=== PATIENT | female | born 1990 | race African-American/Black ===

== ENCOUNTER 2019-01-20 18:57 | Inpatient (IN) | payer OTHER ==
--- NOTE | 2019-01-21 00:37 | HP ---
CIWA Score Nausea/Vomitin-No Nausea/No Vomiting Muscle Tremors: None Anxiety: 4-Mod. Anxious/Guarded Agitation: 4-Moderately Restless Paroxysmal Sweats: No Perspiration Orientation: 0-Oriented Tacttile Disturbances: 0-None Auditory Disturbances: 0-None Visual Disturbances: 0-None Headache: 0-None Present CIWA-Ar Total Score: 8 - Admission Criteria OASAS Guidelines: Admission for Medically Managed Detox: Requires at least one of the followin. CIWA greater than 12 2. Seizures within the past 24 hours 3. Delirium tremens within the past 24 hours 4. Hallucinations within the past 24 hours 5. Acute intervention needed for co occurring medical disorder 6. Acute intervention needed for co occurring psychiatric disorder 7. Severe withdrawal that cannot be handled at a lower level of care (continued vomiting, continued diarrhea, abnormal vital signs) requiring intravenous medication and/or fluids 8. Patient presents the following: Acute intervention needed for co-occurring med or psych disorder (schizoafective and manic depressive) Admission Criteria Met: Admission criteria met Admission ROS [facility] Chief Complaint: C/O WORSENING WITHDRAWAL SX'S. SEEKING DETOX TXMENT Allergies/Adverse Reactions: Allergies Allergy/AdvReac Type Severity Reaction Status Date / Time haloperidol [From Haldol] Allergy Verified 01/20/19 23:04 Penicillins Allergy Verified 01/20/19 23:04 risperidone [From Risperdal] Allergy Verified 01/20/19 23:04 History of Present Illness: 28 Y.O. FEMALE WITH HX/O ALCOHOLISM HERE FOR DETOX. CLIENT IS SELF REFERRED. PRESENTS TODAY WITH C/O WORSENING WITHDRAWAL SX'S. CIWA 12. CLIENT REPORTS THIS HER FIRST ATTEMPT AT DETOX. DENIES HX/O SEIZURES, AVH, SI/HI. DOES REPORT BLACK OUTS. REPORTS LONGEST CLEAN TIME 2 MONTHS. Exam Limitations: No Limitations - Ebola screening Have you traveled outside of the country in the last 21 days: No Have you had contact with anyone from an Ebola affected area: No Do you have a fever: No - Review of Systems Constitutional: Malaise, Unintentional Wgt. Loss EENT: reports: No Symptoms Reported Respiratory: reports: No Symptoms reported Cardiac: reports: No Symptoms Reported GI: reports: Abdominal cramping : reports: No Symptoms Reported Musculoskeletal: reports: Back Pain (CHRONIC) Integumentary: reports: Other (R GREAT TOE ABRASION) Neuro: reports: Numbness (R FOOT) Endocrine: reports: Other (HX/O DM) Hematology: reports: No Symptoms Reported Psychiatric: reports: Orientated x3, Agitated (IRRITABLE), Depressed Other Systems: Reviewed and Negative Patient History - Patient Medical History Hx Anemia: Yes Hx Asthma: Yes Hx Chronic Obstructive Pulmonary Disease (COPD): No Hx Cancer: No Hx Cardiac Disorders: Yes (HEART MUMUR AT ) Hx Congestive Heart Failure: No Hx Hypertension: No Hx Hypercholesterolemia: No Hx Pacemaker: No HX Cerebrovascular Accident: No Hx Seizures: No Hx Dementia: No Hx Diabetes: Yes (NON COMPLAINT W/ DM) Hx Gastrointestinal Disorders: Yes (CONSTIPATION) Hx Liver Disease: No Hx Genitourinary Disorders: No Hx Sexually Transmitted Disorders: No Hx Renal Disease (ESRD): No Hx Thyroid Disease: No Hx Human Immunodeficiency Virus (HIV): No Hx Hepatitis C: No Hx Depression: Yes Hx Suicide Attempt: No Hx Bipolar Disorder: No Hx Schizophrenia: Yes (SCHIZOAFFECTIVE) - Patient Surgical History Past Surgical History: Yes Hx Section: Yes (X2) Anesthesia Reaction: No - PPD History Previous Implant?: Yes Documented Results: Negative w/o proof Implanted On Prior [facility] Admission?: No PPD to be Administered?: Yes - Reproductive History Patient is a Female of Child Bearing Age (11 -55 yrs old): Yes LMP comment: 2 YEARS AGO; CONTROL IMPLANT IN LEFT ARM Patient : No (NEG UHCG) - Smoking Cessation Smoking history: Current every day smoker Have you smoked in the past 12 months: Yes Aproximately how many cigarettes per day: 20 Cigars Per Day: 0 Hx Chewing Tobacco Use: No Initiated information on smoking cessation: Yes 'Breaking Loose' booklet given: 01/21/19 - Substance & Tx. History Hx Alcohol Use: Yes Hx Substance Use: Yes Substance Use Type: Alcohol, Cocaine, Heroin Hx Substance Use Treatment: No - Substances abused Alcohol Substance route: Oral Frequency: Daily Amount used: 1 GALLON Age of first use: 14 Date of last use: 01/20/19 Cocaine Substance route: Smoking Frequency: Daily Amount used: 1 GRAM Age of first use: 26 Date of last use: 01/20/19 Marijuana/Hashish Substance route: Smoking Frequency: Daily Amount used: 2 BLUNTS Age of first use: 15 Date of last use: 01/20/19 Family Disease History - Family Disease History Family Disease History: CA: Mother (SCHIZPPHRENIC; FROM CERVICAL CA; ALCOHOLISM -), Other: Mother Admission Physical Exam [facility] - Vital Signs Vital Signs: Vital Signs - 24 hr 01/20/19 23:03 Temperature 98.7 F Pulse Rate 79 Respiratory 18 Rate Blood Pressure 114/69 - Physical General Appearance: Yes: Irritable HEENTM: Yes: EOMI, Normocephalic, Normal Voice, APOLLO, Pharynx Normal Respiratory: Yes: Chest Non-Tender, Lungs Clear, Normal Breath Sounds, No Respiratory Distress, No Accessory Muscle Use Neck: Yes: No masses,lesions,Nodules, Supple, Trachea in good position Breast: Yes: Breast Exam Deferred Cardiology: Yes: Regular Rhythm, Regular Rate, S1, S2 Abdominal: Yes: Non Tender, Soft, Increased Bowel Sounds Genitourinary: Yes: Within Normal Limits (NO C/O OFFERED) Back: Yes: Normal Inspection Musculoskeletal: Yes: full range of Motion, Gait Steady Extremities: Yes: Normal Capillary Refill, Normal Range of Motion, Non-Tender Neurological: Yes: Fully Oriented, Alert, Motor Strength 5/5, Depressed Affect Integumentary: Yes: Dry, Warm, Other (RIGHT GREAT TOE ABRASION) Lymphatic: Yes: Within Normal Limits - Diagnostic (1) Alcohol dependence with uncomplicated withdrawal Current Visit: Yes Status: Acute (2) Cocaine dependence, uncomplicated Current Visit: Yes Status: Acute (3) Nicotine dependence Current Visit: Yes Status: Acute Qualifiers: Nicotine product type: cigarettes Substance use status: uncomplicated Qualified Code(s): F17.210 - Nicotine dependence, cigarettes, uncomplicated (4) Cannabis abuse, uncomplicated Current Visit: Yes Status: Acute (5) Depression Current Visit: Yes Status: Chronic (6) Schizoaffective disorder Current Visit: Yes Status: Chronic (7) Diabetes Current Visit: Yes Status: Chronic (8) Noncompliance with medication regimen Current Visit: Yes Status: Chronic (9) HTN (hypertension) Current Visit: Yes Status: Chronic Cleared for Admission [facility] - Detox or Rehab [facility] Level of Care: Medically Managed Detox Regimen/Protocol: Librium Claeared for Rehab Admission: No Breathalyzer - Breathalyzer Breathalyzer: 0 POC Urine test - Test device test lot number: [id number] Expiration date: 06/20/20 - Control test control: Yes - Result Urine Test Results: Negative - NO line present Urine Drug Screen - Test Device Lot number: [id number] Expiration date: 09/19/20 - Control Is test valid?: Yes - Results Drug screen NEGATIVE: No Urine drug screen results: THC-Marijuana, FLAQUITO-Cocaine Inpatient Rehab Admission - Rehab Decision to Admit Inpatient rehab admission?: No
[2019-01-21] MEDS ORDERED: DICYCLOMINE HCL 10 MG CAPSULE PO PRN (01:08)
[2019-01-21] MEDS ORDERED: ONDANSETRON *ODT* 4 MG TABLET SL PRN (01:08)
[2019-01-21] MEDS ORDERED: MENTHOL/PHENOL 1 EACH UD MM PRN (01:08)
[2019-01-21] MEDS ORDERED: BISMUTH SUBSALICYLATE 524 MG/30 ML UD PO PRN (01:08)
[2019-01-21] MEDS ORDERED: ACETAMINOPHEN 325 MG TABLET (FP) PO PRN ×2 (01:08)
[2019-01-21] MEDS ORDERED: MAGNESIUM CITRATE 300 ML BOTTLE PO PRN (01:08)
[2019-01-21] MEDS ORDERED: P-EPHED 60MG/TRIPROLIDI 2.5MG TABLET PO PRN (01:08)
[2019-01-21] MEDS ORDERED: MAGNESIUM HYDROX 2400MG/30ML ORAL SUSPENSION 30 ML CUP PO PRN (01:08)
[2019-01-21] MEDS ORDERED: chlordiazePOXIDE HCL 25 MG CAPSULE PO ONE (01:08)
[2019-01-21] MEDS ORDERED: MAG HYDROX/AL HYDROX/SIMETH 30 ML UNIT-DOSE CUP PO PRN (01:08)
[2019-01-21] MEDS ORDERED: chlordiazePOXIDE HCL 10 MG CAPSULE PO PRN (01:08)
[2019-01-21] MEDS: METHOCARBAMOL 500 MG TABLET PO PRN ×2 (02:33→17:31)
[2019-01-21] MEDS: IBUPROFEN 400 MG TABLET (FP) PO PRN (02:33)
[2019-01-21] MEDS: chlordiazePOXIDE HCL 25 MG CAPSULE PO SCH ×3 (05:46→21:21)
[2019-01-21] MEDS ORDERED: NICOTINE POLACRILEX 2 MG GUM BUC PRN (07:51)
--- NOTE | 2019-01-21 10:09 | EKG ---
Test Reason : Blood Pressure : / mmHG Vent. Rate : 067 BPM Atrial Rate : 067 BPM P-R Int : 176 ms QRS Dur : 084 ms QT Int : 392 ms P-R-T Axes : 013 060 040 degrees QTc Int : 414 ms NORMAL SINUS RHYTHM WITH SINUS ARRHYTHMIA NORMAL ECG NO PREVIOUS ECGS AVAILABLE Confirmed by MIQUEL LONGORIA MD ([id number]) on 01/21/2019 10:08:47 AM Referred By: CLARE Confirmed By:MIQUEL LONGORIA MD
[2019-01-21] MEDS: NICOTINE 21 MG/24 HOURS TOPICAL PATCH TD SCH (10:36)
[2019-01-21] MEDS: PRENATAL VITAMINS W/ FOLIC ACID TABLET (FP) PO SCH (10:36)
[2019-01-21 12:32] LABS: HEMATOCRIT 35.5 % (32.4-45.2); HEMOGLOBIN 11.8 GM/dL (10.7-15.3); MCH 30.7 pg (25.7-33.7); MCHC 33.3 g/dl (32.0-36.0); MEAN CELL VOLUME 92.1 fl (80-96); MEAN PLT VOLUME 7.2 fl (7.5-11.1); PLATELET COUNT 352 K/MM3 (134-434); RBC 3.85 M/mm3 (3.60-5.2); RDW 13.7 % (11.6-15.6); WHITE BLOOD COUNT 7.5 K/mm3 (4.0-10.0)
[2019-01-21] MEDS: ALBUTEROL SO4 8 GM HFA INHALER IH PRN ×2 (12:43→20:41)
[2019-01-21] MEDS ORDERED: ALBUTEROL SO4 8 GM HFA INHALER IH ONE (12:43)
[2019-01-21 12:55] LABS: ALBUMIN 3.2 g/dl (3.4-5.0); ALK PHOS 109 U/L (45-117); ANION GAP 7 MMOL/L (8-16); BILIRUBIN,TOTAL 0.2 mg/dL (0.2-1); BLOOD UREA NITROGEN 11 mg/dL (7-18); CALCIUM 8.4 mg/dL (8.5-10.1); CHLORIDE 107 mmol/L (98-107); CO2 25 mmol/L (21-32); CREATININE 0.7 mg/dL (0.55-1.3); GLUCOSE,RANDOM 90 mg/dL (74-106); SGOT/AST 9 U/L (15-37); SGPT/ALT 16 U/L (13-61); SODIUM 139 mmol/L (136-145)
--- NOTE | 2019-01-21 13:05 | PN ---
S CIWA - CIWA Score Nausea/Vomitin-Mild Nausea/No Vomiting Muscle Tremors: 1-None Visible, but Bath Anxiety: 1-Mildly Anxious Agitation: 1-Slight > Activity Paroxysmal Sweats: No Perspiration Orientation: 0-Oriented Tacttile Disturbances: 0-None Auditory Disturbances: 0-None Visual Disturbances: 0-None Headache: 0-None Present CIWA-Ar Total Score: 4 BHS Progress Note (SOAP) Subjective: pt c/o pain R big toe, says it was red yesterday, feeling better today. PE R toe- no redness noted, no warmth, compared to left- no swelling. Vital Signs - 24 hr 01/20/19 01/21/19 01/21/19 23:03 01:50 06:19 Temperature 98.7 F 98.1 F 98.5 F Pulse Rate 79 74 71 Respiratory 18 18 18 Rate Blood Pressure 114/69 118/73 108/67 01/21/19 01/21/19 06:30 11:06 Temperature 98.6 F Pulse Rate 74 Respiratory 18 18 Rate Blood Pressure 120/77 Laboratory Tests 01/21/19 01/21/19 07:00 07:00 WBC 7.5 RBC 3.85 Hgb 11.8 Hct 35.5 MCV 92.1 MCH 30.7 MCHC 33.3 RDW 13.7 Plt Count 352 MPV 7.2 L Sodium 139 Potassium 4.0 Chloride 107 Carbon Dioxide 25 Anion Gap 7 L BUN 11 Creatinine 0.7 Creat Clearance w eGFR 101.15 Random Glucose 90 Calcium 8.4 L Total Bilirubin 0.2 AST 9 L ALT 16 Alkaline Phosphatase 109 Total Protein 6.0 L Albumin 3.2 L a/p: continue alcohol detox protocol: pt doing well R toe- d/w that it looks fine now- to inform medical staff if pain, redness, swelling increased
--- NOTE | 2019-01-21 15:21 | CONSULT ---
[facility] Psychiatric Consult - Data Date of interview: 01/21/19 Admission source: [facility] Identifying data: First admission to [facility] for this 28 y/o AA female self- referred for detoxification treatment (cocaine, cannabis, alcohol). Examined at [address] [place] [address]. Patient is , a mother of two,homeless, unemployed and currently deprived of income (welfare benefits are discontinued). Substance Abuse History: Confirmed by the patient during this interview. Details in current [facility] report : Smoking history: Current every day smoker. Have you smoked in the past 12 months: Yes. Aproximately how many cigarettes per day: 20. Cigars Per Day: 0. Hx Chewing Tobacco Use: No. Initiated information on smoking cessation: Yes. 'Breaking Loose' booklet given: . - Substance & Tx. History. Hx Alcohol Use: Yes. Hx Substance Use: Yes. Substance Use Type: Alcohol, Cocaine, Heroin. Hx Substance Use Treatment: No. - Substances abused. Alcohol. Substance route: Oral. Frequency: Daily. Amount used: 1 GALLON. Age of first use: 14. Date of last use: 01/20/19. Cocaine. Substance route: Smoking. Frequency: Daily. Amount used: 1 GRAM. Age of first use: 26. Date of last use: 01/20/19. Marijuana/Hashish. Substance route: Smoking. Frequency: Daily. Amount used: 2 BLUNTS. Age of first use: 15. Date of last use: 01/20/19 Medical History: Remarkable for anemia, history of heart murmur, bronchial asthma, diabetes mellitus and a history of two sections. Psychiatric History: Patient admits to a history of multiple psychiatric hospitalizations ([facility] + [facility]). Onset of psychiatric disturbances : age 20 (psychotic episode following childbirth). Initially diagnosed with psychosis. Later revised to Schizoaffective Disorder. Ms Marin states that she ised to be prescribed a regimen of abilify (up to 30 mg/day) and hydroxyzine. NOT taken for TWO years ( patient's report). She is currently seeing a " therapist " at the [facility] in [place], [place]. Patient endorses a distant history of self- mutilation at age 18 (cutting). Physical/Sexual Abuse/Trauma History: Not discussed. Patient declines. Additional Comment: Urine drug screen results: THC-Marijuana, FLAQUITO-Cocaine. Noted. Mental Status Exam - Mental Status Exam Alert and Oriented to: Time, Place, Person Cognitive Function: Good Patient Appearance: Disheveled Mood: Nervous, Withdrawn Affect: Mood Congruent, Constricted Patient Behavior: Fatigued, Appropriate, Cooperative Speech Pattern: Clear, Appropriate Voice Loudness: Normal Thought Process: Goal Oriented Thought Disorder: Not Present Hallucinations: Denies Suicidal Ideation: Denies Homicidal Ideation: Denies Insight/Judgement: Poor Sleep: Fair Appetite: Good Gait/Station: Other (not observed; interview conducted at bedside; did not get out of bed) Psychiatric Findings - Problem List ([place] 1, 2,3) (1) Alcohol dependence with uncomplicated withdrawal Current Visit: Yes Status: Acute (2) Cannabis abuse, uncomplicated Current Visit: Yes Status: Chronic (3) Cocaine dependence, uncomplicated Current Visit: Yes Status: Chronic (4) Nicotine dependence Current Visit: Yes Status: Chronic Qualifiers: Nicotine product type: cigarettes Substance use status: uncomplicated Qualified Code(s): F17.210 - Nicotine dependence, cigarettes, uncomplicated (5) Substance induced mood disorder Current Visit: Yes Status: Chronic (6) Schizoaffective disorder Current Visit: Yes Status: Chronic Comment: By history. Non-adherence to medications for past two years. (7) Noncompliance with medication regimen Current Visit: Yes Status: Chronic - Initial Treatment Plan Initial Treatment Plan: Psychoeducation. Sleep hygiene. Detoxification. Support. Motivational enhancement of lifestyle changes. Relapse prevention : discussed with patient. AA meetings. Groups. Patient is asymptomatic for psychosis or claudia and she wishes to stay off aripriprazole (or any other mood stabilizers). Made aware of risks inherent to abstention from medications. Observation.
[2019-01-21] MEDS: guaiFENesin 200 MG/10 ML 10 ML UNIT-DOSE CUPS PO PRN (17:29)
[2019-01-21] MEDS: hydrOXYzine PAMOATE 25 MG CAPSULE (FP) PO PRN (18:54)
[2019-01-21] MEDS: THIAMINE HCL 100 MG TABLET (FP) PO SCH (22:21)
[2019-01-21] MEDS: MELATONIN 5 MG TABLETS PO PRN (22:21)
[2019-01-21 23:35] LABS: PH,URINE 7.5 (5.0-8.0); URINE APPEARANCE CLOUDY; URINE BILIRUBIN NEGATIVE (NEGATIVE); URINE COLOR YELLOW; URINE GLUCOSE (UA) NEGATIVE (NEGATIVE); URINE KETONE NEGATIVE (NEGATIVE); URINE LEUK ESTERASE NEGATIVE (NEGATIVE); URINE NITRITE NEGATIVE (NEGATIVE); URINE PROTEIN NEGATIVE (NEGATIVE); URINE UROBILINOGEN 0.2 mg/dL (0.2-1.0)
[2019-01-22] MEDS: chlordiazePOXIDE 5 MG CAPSULE PO SCH ×3 (05:50→21:30)
[2019-01-22] MEDS: PRENATAL VITAMINS W/ FOLIC ACID TABLET (FP) PO SCH (10:08)
[2019-01-22] MEDS: NICOTINE 21 MG/24 HOURS TOPICAL PATCH TD SCH (10:08)
[2019-01-22] MEDS: LIDOCAINE 5% TOPICAL PATCH TP SCH (13:57)
[2019-01-22] MEDS: guaiFENesin 200 MG/10 ML 10 ML UNIT-DOSE CUPS PO PRN (14:02)
[2019-01-22] MEDS: METHOCARBAMOL 500 MG TABLET PO PRN (17:26)
[2019-01-22] MEDS: hydrOXYzine PAMOATE 25 MG CAPSULE (FP) PO PRN (17:26)
--- NOTE | 2019-01-22 17:34 | PN ---
S CIWA - CIWA Score Nausea/Vomitin Muscle Tremors: None Anxiety: 4-Mod. Anxious/Guarded Agitation: 1-Slight > Activity Paroxysmal Sweats: No Perspiration Orientation: 0-Oriented Tacttile Disturbances: 0-None Auditory Disturbances: 0-None Visual Disturbances: 0-None Headache: 0-None Present CIWA-Ar Total Score: 10 BHS Progress Note (SOAP) Subjective: Anxious, Body Aches, Vomiting, Anxious. Objective: PATIENT A & O X 3, OBSERVED AMBULATING ON UNIT. IN NO ACUTE DISTRESS. 01/22/19 17:33 Vital Signs Temperature 98.5 F 01/22/19 14:17 Pulse Rate 64 01/22/19 14:17 Respiratory Rate 18 01/22/19 14:17 Blood Pressure 118/70 01/22/19 14:17 O2 Sat by Pulse Oximetry (%) Laboratory Tests 01/21/19 01/21/19 01/21/19 07:00 07:00 07:00 WBC 7.5 RBC 3.85 Hgb 11.8 Hct 35.5 MCV 92.1 MCH 30.7 MCHC 33.3 RDW 13.7 Plt Count 352 MPV 7.2 L Sodium 139 Potassium 4.0 Chloride 107 Carbon Dioxide 25 Anion Gap 7 L BUN 11 Creatinine 0.7 Creat Clearance w eGFR 101.15 Random Glucose 90 Calcium 8.4 L Total Bilirubin 0.2 AST 9 L ALT 16 Alkaline Phosphatase 109 Total Protein 6.0 L Albumin 3.2 L Urine Color Urine Appearance Urine pH Ur Specific [place] Urine Protein Urine Glucose (UA) Urine Ketones Urine Blood Urine Nitrite Urine Bilirubin Urine Urobilinogen Ur Leukocyte Esterase Urine WBC (Auto) Urine RBC (Auto) Urine Casts (Auto) U Pathogenic Cast Auto U Epithel Cells (Auto) U Sm Round Cell (Auto) Urine Crystals (Auto) Urine Bacteria (Auto) Urine Yeast (Auto) RPR Titer Nonreactive 01/21/19 01/21/19 12:30 23:25 WBC RBC Hgb Hct MCV MCH MCHC RDW Plt Count MPV Sodium Potassium Chloride Carbon Dioxide Anion Gap BUN Creatinine Creat Clearance w eGFR Random Glucose Calcium Total Bilirubin AST ALT Alkaline Phosphatase Total Protein Albumin Urine Color Cancelled Yellow Urine Appearance Cancelled Cloudy Urine pH Cancelled 7.5 Ur Specific [place] Cancelled 1.015 Urine Protein Cancelled Negative Urine Glucose (UA) Cancelled Negative Urine Ketones Cancelled Negative Urine Blood Cancelled Negative Urine Nitrite Cancelled Negative Urine Bilirubin Cancelled Negative Urine Urobilinogen Cancelled 0.2 Ur Leukocyte Esterase Cancelled Negative Urine WBC (Auto) Cancelled Urine RBC (Auto) Cancelled Urine Casts (Auto) Cancelled U Pathogenic Cast Auto Cancelled U Epithel Cells (Auto) Cancelled U Sm Round Cell (Auto) Cancelled Urine Crystals (Auto) Cancelled Urine Bacteria (Auto) Cancelled Urine Yeast (Auto) Cancelled RPR Titer LABS NOTED. Assessment: 01/22/19 17:33 WITHDRAWAL SYMPTOMS. Plan: CONTINUE DETOX. PRBN ZOFRAN SL FOR VOMITING.
[2019-01-22] MEDS ORDERED: diphenhydrAMINE HCL 25 MG CAPSULE (FP) PO ONE (19:00)
[2019-01-22] MEDS: THIAMINE HCL 100 MG TABLET (FP) PO SCH (21:29)
[2019-01-22] MEDS: IBUPROFEN 400 MG TABLET (FP) PO PRN (21:29)
[2019-01-22] MEDS: MELATONIN 5 MG TABLETS PO PRN (21:31)
[2019-01-22] MEDS: ALBUTEROL SO4 8 GM HFA INHALER IH PRN (22:36)
[2019-01-22] MEDS: LIDOCAINE PATCH REMOVAL MC SCH (22:44)
[2019-01-23] MEDS ORDERED: chlordiazePOXIDE HCL 10 MG CAPSULE PO PRN (05:00)
[2019-01-23] MEDS: chlordiazePOXIDE HCL 10 MG CAPSULE PO SCH ×3 (05:57→21:58)
[2019-01-23] MEDS: IBUPROFEN 400 MG TABLET (FP) PO PRN ×2 (06:02→22:02)
[2019-01-23] MEDS: hydrOXYzine PAMOATE 25 MG CAPSULE (FP) PO PRN ×2 (06:33→18:15)
[2019-01-23] MEDS ORDERED: COLLOIDAL OATMEAL 1 BAR EACH TP PRN (08:38)
[2019-01-23] MEDS ORDERED: diphenhydrAMINE HCL 25 MG CAPSULE (FP) PO PRN (08:38)
[2019-01-23] MEDS: PRENATAL VITAMINS W/ FOLIC ACID TABLET (FP) PO SCH (10:17)
[2019-01-23] MEDS: NICOTINE 21 MG/24 HOURS TOPICAL PATCH TD SCH (10:18)
[2019-01-23] MEDS: LIDOCAINE 5% TOPICAL PATCH TP SCH (10:19)
--- NOTE | 2019-01-23 11:34 | PN ---
Psychiatric Progress Note Vital Signs: Vital Signs Period Temp Pulse Resp BP Sys/Solomon Pulse Ox Last 24 Hr 97.0 F-99.3 F 64-82 16-18 109-131/59-78 Date of Session: 01/23/19 Chief Complaint:: " I want to get back on abilify ". HPI: Asked to re-consult on this patient who has expressed the wish to resume aripriprazole (not taken for past two years). Reason : she feels that she is " getting more irritable ". Ms Marin reports that she almost got into a confrontation yesterday with another peer. " I need abilify to calm me down ". ROS: UUnremarkable. Current Medications: Active Medications Generic Name Dose Route Start Last Admin Trade Name Freq PRN Reason Stop Dose Admin Acetaminophen 650 mg 01/21/19 01:08 01/22/19 05:51 Tylenol - PO 650 mg Q6H PRN Administration PAIN LEVEL 4 - 6 Acetaminophen 650 mg 01/21/19 01:08 Tylenol - PO Q6H PRN FEVER Al Hydroxide/Mg Hydroxide 30 ml 01/21/19 01:08 Mylanta Oral Suspension - PO Q6H PRN DYSPEPSIA Albuterol Sulfate 2 puff 01/21/19 14:31 01/22/19 22:36 Ventolin Hfa Inhaler - IH 2 puff Q4H PRN Administration ASTHMA Bismuth Subsalicylate 524 mg 01/21/19 01:08 Pepto-Bismol - PO Q1H PRN DIARRHEA Chlordiazepoxide HCl 10 mg 01/23/19 05:00 Librium - PO 01/24/19 05:00 Q12H PRN Signs/symptoms of Withdrawal Chlordiazepoxide HCl 10 mg 01/23/19 05:00 01/23/19 05:57 Librium - PO 01/24/19 05:01 10 mg Q8H WALT Administration Colloidal Oatmeal 1 applic 01/23/19 08:38 Aveeno Soap - TP DAILY PRN HYGEINE Dicyclomine HCl 10 mg 01/21/19 01:08 Bentyl - PO 01/27/19 01:13 Q6H PRN Abdominal Cramping Eucalyptus/Menthol/Phenol/Sorbitol 1 each 01/21/19 01:08 Cepastat Lozenge - MM 01/27/19 01:09 Q4H PRN SORE THROAT Guaifenesin 10 ml 01/21/19 01:08 01/22/19 14:02 Robitussin - PO 10 ml Q6H PRN Administration COUGH Hydrocortisone 1 applic 01/23/19 10:00 Hytone 0.5% Cream - TP BID WALT Hydroxyzine Pamoate 50 mg 01/21/19 01:08 01/23/19 06:33 Vistaril - PO 01/27/19 01:09 50 mg Q6H PRN Administration For Anxiety Ibuprofen 400 mg 01/21/19 01:08 01/23/19 06:02 Motrin - PO 400 mg Q6H PRN Administration PAIN LEVEL 1 - 3 Lidocaine 1 patch 01/22/19 13:45 01/23/19 10:19 Lidoderm Patch - TP 1 patch DAILY WALT Administration Magnesium Citrate 300 ml 01/21/19 01:08 Citroma - PO Q48H PRN CONSTIPATION Magnesium Hydroxide 30 ml 01/21/19 01:08 Milk Of Magnesia - PO PRN PRN CONSTIPATION Melatonin 5 mg 01/21/19 01:08 01/22/19 21:31 Melatonin PO 5 mg HS PRN Administration INSOMNIA Methocarbamol 500 mg 01/21/19 01:08 01/22/19 17:26 Robaxin - PO 01/27/19 01:09 500 mg Q6H PRN Administration MUSCLE SPASMS Miscellaneous 1 each 01/22/19 22:00 01/22/19 22:44 Lidoderm Patch Removal MC Not Given DAILY@2200 WALT Nicotine 21 mg 01/21/19 10:00 01/23/19 10:18 Nicoderm Patch - TD 21 mg DAILY WALT Administration Nicotine Polacrilex 2 mg 01/21/19 07:51 01/21/19 08:03 Nicorette Gum - BUC 2 mg Q2H PRN Administration NICOTINE REPLACEMENT RX Ondansetron HCl 4 mg 01/21/19 01:08 01/22/19 12:20 Zofran Odt - SL 01/27/19 01:13 4 mg Q12H PRN Administration Nausea/Vomiting Multivit/Folic Acid/Iron 1 tab 01/21/19 10:00 01/23/19 10:17 Vitamins ([facility]) - PO 1 tab DAILY WALT Administration Pseudoephedrine/Triprolidine 1 combo 01/21/19 01:08 Actifed - PO 01/27/19 01:13 Q6H PRN NASAL CONGESTION Thiamine HCl 100 mg 01/21/19 22:00 01/22/19 21:29 Vitamin B1 - PO 100 mg HS WALT Administration Medication(s) Change(s): Abilify is restarted at the dose of 5 mg po daily. Side effects/benefits discussed with the patient. Ms Marin is in agreement with this plan of care. Current Side Effect: No Lab tests ordered: No Lab tests reviewed: Yes Provider note:: Met with patient. Chart reviewed. Total face to face time:: 25 Mental Status Exam - Mental Status Exam Alert and Oriented to: Time, Place, Person Cognitive Function: Good Patient Appearance: Well Groomed Mood: Apprehensive, Hopeful Affect: Mood Congruent, Constricted Patient Behavior: Fatigued, Appropriate, Cooperative Speech Pattern: Clear, Appropriate Voice Loudness: Normal Thought Process: Goal Oriented Thought Disorder: Not Present Hallucinations: Denies Suicidal Ideation: Denies Homicidal Ideation: Denies Insight/Judgement: Fair Sleep: Fair Appetite: Good Muscle strength/Tone: Normal Gait/Station: Normal Psychiatric Treatment Plan - Problem List (1) Alcohol dependence with uncomplicated withdrawal Current Visit: Yes Comment: . (2) Cannabis abuse, uncomplicated Current Visit: Yes Comment: . (3) Cocaine dependence, uncomplicated Current Visit: Yes Comment: . (4) Nicotine dependence Current Visit: Yes Qualifiers: Nicotine product type: cigarettes Substance use status: uncomplicated Qualified Code(s): F17.210 - Nicotine dependence, cigarettes, uncomplicated Comment: . (5) Substance induced mood disorder Current Visit: Yes Comment: . (6) Schizoaffective disorder Current Visit: Yes Comment: .By history. Non-adherence to medications for past two years. (7) Noncompliance with medication regimen Current Visit: Yes Comment: .
[2019-01-23] MEDS: HYDROCORTISONE 0.5% TOPICAL CREAM 30 GM TUBE TP SCH ×2 (13:09→21:58)
[2019-01-23] MEDS: METHOCARBAMOL 500 MG TABLET PO PRN ×2 (13:11→18:15)
--- NOTE | 2019-01-23 17:12 | PN ---
BHS Progress Note (SOAP) Subjective: Body Aches, Anxious. Objective: PATIENT A & O X 3, OBSERVED AMBULATING ON UNIT. IN NO ACUTE DISTRESS. 01/23/19 17:11 Vital Signs Temperature 97.2 F L 01/23/19 14:32 Pulse Rate 72 01/23/19 14:32 Respiratory Rate 18 01/23/19 14:32 Blood Pressure 88/64 L 01/23/19 14:32 O2 Sat by Pulse Oximetry (%) Laboratory Tests 01/21/19 01/21/19 01/21/19 07:00 07:00 07:00 WBC 7.5 RBC 3.85 Hgb 11.8 Hct 35.5 MCV 92.1 MCH 30.7 MCHC 33.3 RDW 13.7 Plt Count 352 MPV 7.2 L Sodium 139 Potassium 4.0 Chloride 107 Carbon Dioxide 25 Anion Gap 7 L BUN 11 Creatinine 0.7 Creat Clearance w eGFR 101.15 Random Glucose 90 Calcium 8.4 L Total Bilirubin 0.2 AST 9 L ALT 16 Alkaline Phosphatase 109 Total Protein 6.0 L Albumin 3.2 L Urine Color Urine Appearance Urine pH Ur Specific [place] Urine Protein Urine Glucose (UA) Urine Ketones Urine Blood Urine Nitrite Urine Bilirubin Urine Urobilinogen Ur Leukocyte Esterase Urine WBC (Auto) Urine RBC (Auto) Urine Casts (Auto) U Pathogenic Cast Auto U Epithel Cells (Auto) U Sm Round Cell (Auto) Urine Crystals (Auto) Urine Bacteria (Auto) Urine Yeast (Auto) RPR Titer Nonreactive 01/21/19 01/21/19 12:30 23:25 WBC RBC Hgb Hct MCV MCH MCHC RDW Plt Count MPV Sodium Potassium Chloride Carbon Dioxide Anion Gap BUN Creatinine Creat Clearance w eGFR Random Glucose Calcium Total Bilirubin AST ALT Alkaline Phosphatase Total Protein Albumin Urine Color Cancelled Yellow Urine Appearance Cancelled Cloudy Urine pH Cancelled 7.5 Ur Specific [place] Cancelled 1.015 Urine Protein Cancelled Negative Urine Glucose (UA) Cancelled Negative Urine Ketones Cancelled Negative Urine Blood Cancelled Negative Urine Nitrite Cancelled Negative Urine Bilirubin Cancelled Negative Urine Urobilinogen Cancelled 0.2 Ur Leukocyte Esterase Cancelled Negative Urine WBC (Auto) Cancelled Urine RBC (Auto) Cancelled Urine Casts (Auto) Cancelled U Pathogenic Cast Auto Cancelled U Epithel Cells (Auto) Cancelled U Sm Round Cell (Auto) Cancelled Urine Crystals (Auto) Cancelled Urine Bacteria (Auto) Cancelled Urine Yeast (Auto) Cancelled RPR Titer LABS NOTED. Assessment: 01/23/19 17:11 WITHDRAWAL SYMPTOMS. Plan: CONTINUE DETOX. PATIENT SCHEDULED FOR D/C TOMORROW.
[2019-01-23] MEDS: guaiFENesin 200 MG/10 ML 10 ML UNIT-DOSE CUPS PO PRN (18:14)
[2019-01-23] MEDS: THIAMINE HCL 100 MG TABLET (FP) PO SCH (21:58)
[2019-01-23] MEDS: LIDOCAINE PATCH REMOVAL MC SCH (21:58)
[2019-01-23] MEDS: MELATONIN 5 MG TABLETS PO PRN (21:59)
[2019-01-23] MEDS ORDERED: ARIPiprazole 5 MG TABLET (FP) PO SCH (22:00)
[2019-01-24] MEDS: METHOCARBAMOL 500 MG TABLET PO PRN (05:26)
[2019-01-24] MEDS: chlordiazePOXIDE HCL 10 MG CAPSULE PO SCH (05:26)
[2019-01-24 06:38] VITALS: BP 120/82; PULSE 80; TEMP 97.6
[2019-01-24] MEDS: hydrOXYzine PAMOATE 25 MG CAPSULE (FP) PO PRN (07:42)
--- NOTE | 2019-01-24 19:52 | DS ---
[facility] Detox Discharge Summary Admission Date: 01/21/19 Discharge Date: 01/24/19 - History Present History: Alcohol Dependence, Cannabis Dependence, Cocaine Dependence Additional Comments: PATIENT GOING TO [facility] ([place], [place]) FOR AFTERCARE. PATIENT WAS DISCHARGED FROM DETOX UNIT IN STABLE MEDICAL CONDITION. Pertinent Past History: History Of Anemia, Asthma, History of Heart Murmur, DM, Dpression, Schizoaffective Disorder, Nicotine Dependence. - Physical Exam Results Vital Signs: Vital Signs Temperature 97.6 F 01/24/19 06:37 Pulse Rate 80 01/24/19 06:37 Respiratory Rate 18 01/24/19 06:37 Blood Pressure 120/82 01/24/19 06:37 O2 Sat by Pulse Oximetry (%) Pertinent Admission Physical Exam Findings: WITHDRAWAL SYMPTOMS. Laboratory Tests 01/21/19 01/21/19 01/21/19 07:00 07:00 07:00 WBC 7.5 RBC 3.85 Hgb 11.8 Hct 35.5 MCV 92.1 MCH 30.7 MCHC 33.3 RDW 13.7 Plt Count 352 MPV 7.2 L Sodium 139 Potassium 4.0 Chloride 107 Carbon Dioxide 25 Anion Gap 7 L BUN 11 Creatinine 0.7 Creat Clearance w eGFR 101.15 Random Glucose 90 Calcium 8.4 L Total Bilirubin 0.2 AST 9 L ALT 16 Alkaline Phosphatase 109 Total Protein 6.0 L Albumin 3.2 L Urine Color Urine Appearance Urine pH Ur Specific [place] Urine Protein Urine Glucose (UA) Urine Ketones Urine Blood Urine Nitrite Urine Bilirubin Urine Urobilinogen Ur Leukocyte Esterase Urine WBC (Auto) Urine RBC (Auto) Urine Casts (Auto) U Pathogenic Cast Auto U Epithel Cells (Auto) U Sm Round Cell (Auto) Urine Crystals (Auto) Urine Bacteria (Auto) Urine Yeast (Auto) RPR Titer Nonreactive 01/21/19 01/21/19 12:30 23:25 WBC RBC Hgb Hct MCV MCH MCHC RDW Plt Count MPV Sodium Potassium Chloride Carbon Dioxide Anion Gap BUN Creatinine Creat Clearance w eGFR Random Glucose Calcium Total Bilirubin AST ALT Alkaline Phosphatase Total Protein Albumin Urine Color Cancelled Yellow Urine Appearance Cancelled Cloudy Urine pH Cancelled 7.5 Ur Specific [place] Cancelled 1.015 Urine Protein Cancelled Negative Urine Glucose (UA) Cancelled Negative Urine Ketones Cancelled Negative Urine Blood Cancelled Negative Urine Nitrite Cancelled Negative Urine Bilirubin Cancelled Negative Urine Urobilinogen Cancelled 0.2 Ur Leukocyte Esterase Cancelled Negative Urine WBC (Auto) Cancelled Urine RBC (Auto) Cancelled Urine Casts (Auto) Cancelled U Pathogenic Cast Auto Cancelled U Epithel Cells (Auto) Cancelled U Sm Round Cell (Auto) Cancelled Urine Crystals (Auto) Cancelled Urine Bacteria (Auto) Cancelled Urine Yeast (Auto) Cancelled RPR Titer LABS NOTED. - Treatment Hospital Course: Detox Protocol Followed, Detoxed Safely, Responded well, Discharged Condition Good, Rehab Referral Accepted Patient has Accepted a Rehab Referral to: [facility] ([place], [place]). - Medication Discharge Medications: Ambulatory Orders Albuterol Sulfate Inhaler - [Ventolin Hfa Inhaler -] 1 - 2 inh PO Q4H PRN #1 inhaler 01/24/19 - Diagnosis (1) Alcohol dependence with uncomplicated withdrawal Status: Acute (2) Cannabis abuse, uncomplicated Status: Chronic (3) Cocaine dependence, uncomplicated Status: Chronic (4) Depression Status: Chronic Qualifiers: Depression Type: unspecified Qualified Code(s): F32.9 - Major depressive disorder, single episode, unspecified (5) Diabetes Status: Chronic Qualifiers: Diabetes mellitus type: type 2 Diabetes mellitus group home insulin use: without group home use Diabetes mellitus complication status: with unspecified complications Qualified Code(s): E11.8 - Type 2 diabetes mellitus with unspecified complications (6) HTN (hypertension) Status: Chronic Qualifiers: Hypertension type: unspecified Qualified Code(s): I10 - Essential (primary ) hypertension (7) Nicotine dependence Status: Chronic Qualifiers: Nicotine product type: cigarettes Substance use status: uncomplicated Qualified Code(s): F17.210 - Nicotine dependence, cigarettes, uncomplicated (8) Noncompliance with medication regimen Status: Chronic (9) Schizoaffective disorder Status: Chronic Qualifiers: Schizoaffective disorder type: unspecified Qualified Code(s): F25.9 - Schizoaffective disorder, unspecified (10) Substance induced mood disorder Status: Chronic - AMA Did Patient Leave Against Medical Advice: No
== END 2019-01-24 09:35 | disposition other institution (70) | DRG 774 ==
LOC: YASAS 18:57 → Y3N 01-21 01:02
PROVIDERS: ADMIT Surgery; ATTEND Surgery
PROC: HZ2ZZZZ Detoxification Services for Substance Abuse Treatment (ICD-10-PCS; principal; 2019-01-21)
DX: F10.230 Alcohol dependence with withdrawal, uncomplicated (principal); F14.20 Cocaine dependence, uncomplicated; F12.20 Cannabis dependence, uncomplicated; F17.210 Nicotine dependence, cigarettes, uncomplicated; F19.24 Other psychoactive substance dependence with psychoactive substance-induced mood disorder; F25.9 Schizoaffective disorder, unspecified; F32.9 Major depressive disorder, single episode, unspecified; I10 Essential (primary) hypertension; E11.9 Type 2 diabetes mellitus without complications; Z79.84 Long term (current) use of oral hypoglycemic drugs; Z91.14 Patient's other noncompliance with medication regimen; Z88.0 Allergy status to penicillin; Z88.8 Allergy status to other drugs, medicaments and biological substances
CPT/HCPCS: 36415; 80053; 81003; 85027; 86593; 90686; 93005; 93010; G0008; Q0162

== ENCOUNTER 2021-02-03 15:51 | Inpatient (IN) | payer OTHER ==
[2021-02-03 19:59] VITALS: BMI 32.3
[2021-02-04] MEDS ORDERED: MAGNESIUM CITRATE 300 ML BOTTLE PO PRN (00:21)
[2021-02-04] MEDS ORDERED: MAGNESIUM HYDROX 2400MG/30ML ORAL SUSPENSION 30 ML CUP PO PRN (00:21)
[2021-02-04] MEDS ORDERED: MAG HYDROX/AL HYDROX/SIMETH 30 ML UNIT-DOSE CUP PO PRN (00:21)
[2021-02-04] MEDS ORDERED: P-EPHED 60MG/TRIPROLIDI 2.5MG TABLET PO PRN (00:21)
[2021-02-04] MEDS ORDERED: guaiFENesin 200 MG/10 ML 10 ML UNIT-DOSE CUPS PO PRN (00:21)
[2021-02-04] MEDS ORDERED: LOPERAMIDE HCL 2 MG CAPSULE PO PRN (00:21)
[2021-02-04] MEDS: NICOTINE 21 MG/24 HOURS TOPICAL PATCH TD SCH (11:17)
[2021-02-04] MEDS: PRENATAL VITAMINS W/ FOLIC ACID TABLET (FP) PO SCH (11:17)
[2021-02-04] MEDS: IBUPROFEN 400 MG TABLET (FP) PO PRN ×2 (13:04→19:18)
[2021-02-04] MEDS: ACETAMINOPHEN 325 MG TABLET (FP) PO PRN (15:37)
[2021-02-04] MEDS: THIAMINE HCL 100 MG TABLET (FP) PO SCH (21:53)
[2021-02-04] MEDS: MELATONIN 5 MG TABLETS PO SCH (21:53)
[2021-02-05] MEDS: IBUPROFEN 400 MG TABLET (FP) PO PRN ×2 (08:07→14:39)
[2021-02-05] MEDS: PRENATAL VITAMINS W/ FOLIC ACID TABLET (FP) PO SCH (09:58)
[2021-02-05] MEDS: NICOTINE 21 MG/24 HOURS TOPICAL PATCH TD SCH (09:58)
[2021-02-05] MEDS: ACETAMINOPHEN 325 MG TABLET (FP) PO PRN (12:15)
[2021-02-05] MEDS: MELATONIN 5 MG TABLETS PO SCH (22:05)
[2021-02-05] MEDS: THIAMINE HCL 100 MG TABLET (FP) PO SCH (22:05)
[2021-02-06] MEDS: IBUPROFEN 400 MG TABLET (FP) PO PRN ×2 (07:36→14:25)
[2021-02-06] MEDS: PRENATAL VITAMINS W/ FOLIC ACID TABLET (FP) PO SCH (10:03)
[2021-02-06] MEDS: ACETAMINOPHEN 325 MG TABLET (FP) PO PRN (10:04)
[2021-02-06] MEDS: NICOTINE 21 MG/24 HOURS TOPICAL PATCH TD SCH (10:32)
[2021-02-06] MEDS: METHOCARBAMOL 500 MG TABLET PO PRN (13:09)
[2021-02-06] MEDS: THIAMINE HCL 100 MG TABLET (FP) PO SCH (21:46)
[2021-02-06] MEDS: MELATONIN 5 MG TABLETS PO SCH (21:46)
[2021-02-07] MEDS: METHOCARBAMOL 500 MG TABLET PO PRN (06:31)
[2021-02-07] MEDS: IBUPROFEN 400 MG TABLET (FP) PO PRN (06:31)
[2021-02-07] MEDS: hydrOXYzine PAMOATE 25 MG CAPSULE (FP) PO PRN (09:45)
[2021-02-07] MEDS: PRENATAL VITAMINS W/ FOLIC ACID TABLET (FP) PO SCH (09:45)
[2021-02-07] MEDS: NICOTINE 21 MG/24 HOURS TOPICAL PATCH TD SCH (09:46)
[2021-02-07] MEDS: MELATONIN 5 MG TABLETS PO SCH (23:33)
[2021-02-07] MEDS: THIAMINE HCL 100 MG TABLET (FP) PO SCH (23:33)
[2021-02-08 06:06] LABS: SARS-CoV-2 NAA Not Detected (Not Detected)
[2021-02-08] MEDS: METHOCARBAMOL 500 MG TABLET PO PRN (06:38)
[2021-02-08] MEDS: hydrOXYzine PAMOATE 25 MG CAPSULE (FP) PO PRN (06:38)
[2021-02-08] MEDS: NICOTINE 21 MG/24 HOURS TOPICAL PATCH TD SCH (10:09)
[2021-02-08] MEDS: PRENATAL VITAMINS W/ FOLIC ACID TABLET (FP) PO SCH (10:09)
[2021-02-08] MEDS: MELATONIN 5 MG TABLETS PO SCH (21:30)
[2021-02-08] MEDS: THIAMINE HCL 100 MG TABLET (FP) PO SCH (21:30)
[2021-02-09] MEDS: hydrOXYzine PAMOATE 25 MG CAPSULE (FP) PO PRN (06:05)
[2021-02-09] MEDS: METHOCARBAMOL 500 MG TABLET PO PRN (06:06)
[2021-02-09] MEDS ORDERED: PT OWN MED DRAWER 7, Y5N ONE (08:55)
[2021-02-09] MEDS: PRENATAL VITAMINS W/ FOLIC ACID TABLET (FP) PO SCH (09:41)
[2021-02-09] MEDS: NICOTINE 21 MG/24 HOURS TOPICAL PATCH TD SCH (09:41)
[2021-02-09 17:52] LABS: EPI CELLS 28 /uL (0-25.1); HYALINE CASTS 0 /uL (0-3.1); URINE APPEARANCE CLEAR; URINE BACTERIA 530 /uL (0-1359); URINE BILIRUBIN NEGATIVE (NEGATIVE); URINE COLOR YELLOW; URINE GLUCOSE (UA) NEGATIVE (NEGATIVE); URINE KETONE NEGATIVE (NEGATIVE); URINE LEUK ESTERASE 2+ (NEGATIVE); URINE NITRITE NEGATIVE (NEGATIVE); URINE PROTEIN NEGATIVE (NEGATIVE); URINE RBC 3 /uL (0-23.9); URINE UROBILINOGEN 0.2 mg/dL (0.2-1.0); URINE WBC 56 /uL (0-25.8)
[2021-02-09] MEDS: THIAMINE HCL 100 MG TABLET (FP) PO SCH (21:08)
[2021-02-09] MEDS: MELATONIN 5 MG TABLETS PO SCH (21:08)
[2021-02-09] MEDS ORDERED: QUEtiapine FUMARATE 50 MG TABLET PO SCH (22:00)
[2021-02-10] MEDS: METHOCARBAMOL 500 MG TABLET PO PRN (06:14)
[2021-02-10] MEDS: hydrOXYzine PAMOATE 25 MG CAPSULE (FP) PO PRN (06:14)
[2021-02-10] MEDS: NICOTINE 21 MG/24 HOURS TOPICAL PATCH TD SCH (09:37)
[2021-02-10] MEDS: PRENATAL VITAMINS W/ FOLIC ACID TABLET (FP) PO SCH (09:37)
[2021-02-10] MEDS: MELATONIN 5 MG TABLETS PO SCH (21:09)
[2021-02-10] MEDS: THIAMINE HCL 100 MG TABLET (FP) PO SCH (21:09)
[2021-02-10] MEDS: QUEtiapine FUMARATE 100 MG TABLET (FP) PO SCH (21:09)
[2021-02-11] MEDS: hydrOXYzine PAMOATE 25 MG CAPSULE (FP) PO PRN (06:37)
[2021-02-11] MEDS: METHOCARBAMOL 500 MG TABLET PO PRN (06:37)
[2021-02-11] MEDS: PRENATAL VITAMINS W/ FOLIC ACID TABLET (FP) PO SCH (09:24)
[2021-02-11] MEDS: NICOTINE 21 MG/24 HOURS TOPICAL PATCH TD SCH (09:24)
[2021-02-11] MEDS: ALBUTEROL SO4 HFA INHALER IH PRN (16:24)
[2021-02-11] MEDS: QUEtiapine FUMARATE 100 MG TABLET (FP) PO SCH (21:03)
[2021-02-11] MEDS: MELATONIN 5 MG TABLETS PO SCH (21:03)
[2021-02-11] MEDS: THIAMINE HCL 100 MG TABLET (FP) PO SCH (21:03)
[2021-02-12] MEDS: hydrOXYzine PAMOATE 25 MG CAPSULE (FP) PO PRN (06:10)
[2021-02-12] MEDS: METHOCARBAMOL 500 MG TABLET PO PRN (06:10)
[2021-02-12] MEDS: PRENATAL VITAMINS W/ FOLIC ACID TABLET (FP) PO SCH ×2 (09:40→09:43)
[2021-02-12] MEDS: NICOTINE 21 MG/24 HOURS TOPICAL PATCH TD SCH ×2 (09:40→09:45)
[2021-02-12] MEDS: THIAMINE HCL 100 MG TABLET (FP) PO SCH (21:05)
[2021-02-12] MEDS: QUEtiapine FUMARATE 100 MG TABLET (FP) PO SCH (21:05)
[2021-02-12] MEDS: MELATONIN 5 MG TABLETS PO SCH (21:05)
[2021-02-13] MEDS: hydrOXYzine PAMOATE 25 MG CAPSULE (FP) PO PRN ×2 (06:33→21:09)
[2021-02-13] MEDS: METHOCARBAMOL 500 MG TABLET PO PRN ×2 (06:33→21:09)
[2021-02-13] MEDS: NICOTINE 21 MG/24 HOURS TOPICAL PATCH TD SCH (09:40)
[2021-02-13] MEDS: PRENATAL VITAMINS W/ FOLIC ACID TABLET (FP) PO SCH (09:40)
[2021-02-13] MEDS: ALBUTEROL SO4 HFA INHALER IH PRN (10:23)
[2021-02-13] MEDS: QUEtiapine FUMARATE 100 MG TABLET (FP) PO SCH (21:09)
[2021-02-13] MEDS: MELATONIN 5 MG TABLETS PO SCH (21:09)
[2021-02-13] MEDS: THIAMINE HCL 100 MG TABLET (FP) PO SCH (21:09)
[2021-02-14] MEDS: METHOCARBAMOL 500 MG TABLET PO PRN ×2 (06:10→21:07)
[2021-02-14] MEDS: hydrOXYzine PAMOATE 25 MG CAPSULE (FP) PO PRN ×2 (06:10→21:07)
[2021-02-14] MEDS: NICOTINE 21 MG/24 HOURS TOPICAL PATCH TD SCH (09:39)
[2021-02-14] MEDS: PRENATAL VITAMINS W/ FOLIC ACID TABLET (FP) PO SCH (09:39)
[2021-02-14] MEDS: ALBUTEROL SO4 HFA INHALER IH PRN ×2 (09:40→21:07)
[2021-02-14] MEDS: NICOTINE POLACRILEX 2 MG GUM BC PRN (09:41)
[2021-02-14] MEDS: SODIUM CHLORIDE NASAL SPRAY 44 ML BOTTLE NS PRN ×2 (12:30→21:07)
[2021-02-14] MEDS: QUEtiapine FUMARATE 100 MG TABLET (FP) PO SCH (21:04)
[2021-02-14] MEDS: MELATONIN 5 MG TABLETS PO SCH (21:04)
[2021-02-14] MEDS: THIAMINE HCL 100 MG TABLET (FP) PO SCH (21:04)
[2021-02-14] MEDS ORDERED: PT OWN MED DRAWER 7, Y5N ONE (21:06)
[2021-02-15] MEDS: hydrOXYzine PAMOATE 25 MG CAPSULE (FP) PO PRN ×2 (06:12→21:35)
[2021-02-15] MEDS: METHOCARBAMOL 500 MG TABLET PO PRN ×2 (06:12→21:35)
[2021-02-15] MEDS: SODIUM CHLORIDE NASAL SPRAY 44 ML BOTTLE NS PRN (06:12)
[2021-02-15] MEDS: ALBUTEROL SO4 HFA INHALER IH PRN (06:12)
[2021-02-15] MEDS: PRENATAL VITAMINS W/ FOLIC ACID TABLET (FP) PO SCH (09:10)
[2021-02-15] MEDS: NICOTINE 21 MG/24 HOURS TOPICAL PATCH TD SCH (09:10)
[2021-02-15] MEDS: THIAMINE HCL 100 MG TABLET (FP) PO SCH (21:35)
[2021-02-15] MEDS: QUEtiapine FUMARATE 100 MG TABLET (FP) PO SCH (21:35)
[2021-02-15] MEDS: MELATONIN 5 MG TABLETS PO SCH (21:35)
[2021-02-16] MEDS: METHOCARBAMOL 500 MG TABLET PO PRN ×2 (06:32→21:09)
[2021-02-16] MEDS: hydrOXYzine PAMOATE 25 MG CAPSULE (FP) PO PRN ×2 (06:32→21:10)
[2021-02-16 07:01] VITALS: BP 117/67; TEMP 97.1
[2021-02-16] MEDS: PRENATAL VITAMINS W/ FOLIC ACID TABLET (FP) PO SCH (10:01)
[2021-02-16] MEDS: NICOTINE 21 MG/24 HOURS TOPICAL PATCH TD SCH (10:01)
[2021-02-16] MEDS: NICOTINE POLACRILEX 2 MG GUM BC PRN (10:02)
[2021-02-16] MEDS: DIVALPROEX SODIUM 250 MG TABLET E.C. PO SCH ×2 (10:53→21:09)
[2021-02-16] MEDS ORDERED: PT OWN MED DRAWER 7, Y5N ONE ×2 (15:15→21:14)
[2021-02-16 15:25] VITALS: PULSE 80
[2021-02-16] MEDS: ACETAMINOPHEN 325 MG TABLET (FP) PO PRN (17:24)
[2021-02-16] MEDS: THIAMINE HCL 100 MG TABLET (FP) PO SCH (21:09)
[2021-02-16] MEDS: MELATONIN 5 MG TABLETS PO SCH (21:12)
[2021-02-16] MEDS: ALBUTEROL SO4 HFA INHALER IH PRN (21:14)
[2021-02-16] MEDS: SODIUM CHLORIDE NASAL SPRAY 44 ML BOTTLE NS PRN (21:14)
[2021-02-16] MEDS ORDERED: QUEtiapine FUMARATE 50 MG TABLET PO SCH (22:00)
[2021-02-16] MEDS ORDERED: MASKS NR ONE (23:45)
[2021-02-17] MEDS: METHOCARBAMOL 500 MG TABLET PO PRN (09:43)
[2021-02-17] MEDS: DIVALPROEX SODIUM 250 MG TABLET E.C. PO SCH (09:43)
[2021-02-17] MEDS: hydrOXYzine PAMOATE 25 MG CAPSULE (FP) PO PRN (09:43)
[2021-02-17] MEDS: PRENATAL VITAMINS W/ FOLIC ACID TABLET (FP) PO SCH (09:43)
[2021-02-17] MEDS: NICOTINE 21 MG/24 HOURS TOPICAL PATCH TD SCH (09:44)
[2021-02-17] MEDS: NICOTINE POLACRILEX 2 MG GUM BC PRN (09:44)
[2021-02-17] MEDS: ALBUTEROL SO4 HFA INHALER IH PRN (09:46)
[2021-02-17] MEDS: SODIUM CHLORIDE NASAL SPRAY 44 ML BOTTLE NS PRN (09:46)
[2021-02-17] MEDS ORDERED: NICOTINE POLACRILEX 2 MG GUM BUC ONE (09:46)
[2021-02-17] MEDS ORDERED: PT OWN MED DRAWER 7, Y5N ONE (09:46)
[2021-02-17] MEDS ORDERED: DIVALPROEX SODIUM 250 MG TABLET E.C. PO ONE (10:30)
[2021-02-17 10:43] LABS: HEMATOCRIT 31.3 % (32.4-45.2); HEMOGLOBIN 10.5 GM/dL (10.7-15.3); MCH 30.9 pg (25.7-33.7); MCHC 33.7 g/dl (32.0-36.0); MEAN CELL VOLUME 91.6 fl (80-96); MEAN PLT VOLUME 6.6 fl (7.5-11.1); PLATELET COUNT 529 K/MM3 (134-434); RBC 3.41 M/mm3 (3.60-5.2); RDW 14.5 % (11.6-15.6); WHITE BLOOD COUNT 6.1 K/mm3 (4.0-10.0)
[2021-02-17 10:50] LABS: ALBUMIN 2.9 g/dl (3.4-5.0); BLOOD UREA NITROGEN 15.9 mg/dL (7-18)
[2021-02-17 10:53] LABS: CALCIUM 8.6 mg/dL (8.5-10.1)
[2021-02-17 10:56] LABS: BILIRUBIN,TOTAL 0.6 mg/dL (0.2-1); CREATININE 0.6 mg/dL (0.55-1.3)
[2021-02-17 10:57] LABS: TOT PROT 6.7 g/dl (6.4-8.2)
[2021-02-17] MEDS ORDERED: DIVALPROEX SODIUM 500 MG TABLET E.C. PO SCH (22:00)
[2021-02-17] MEDS ORDERED: QUEtiapine FUMARATE 200 MG TABLET PO SCH (22:00)
== END 2021-02-17 17:26 | disposition home or self-care (01) | DRG 772 ==
LOC: YASAS 15:51 → Y5N 02-04 00:34
PROVIDERS: ADMIT Allergy & Immunology; ATTEND Allergy & Immunology
PROC: HZ42ZZZ Group Counseling for Substance Abuse Treatment, Cognitive-Behavioral (ICD-10-PCS; principal; 2021-02-04)
DX: F10.20 Alcohol dependence, uncomplicated (principal); F14.20 Cocaine dependence, uncomplicated; F12.20 Cannabis dependence, uncomplicated; F17.210 Nicotine dependence, cigarettes, uncomplicated; F25.9 Schizoaffective disorder, unspecified; F19.24 Other psychoactive substance dependence with psychoactive substance-induced mood disorder; O99.893 Other specified diseases and conditions complicating puerperium; O99.325 Drug use complicating the puerperium; O99.335 Smoking (tobacco) complicating the puerperium; O99.315 Alcohol use complicating the puerperium; E11.9 Type 2 diabetes mellitus without complications; J45.20 Mild intermittent asthma, uncomplicated; R01.1 Cardiac murmur, unspecified; I10 Essential (primary) hypertension; Z91.410 Personal history of adult physical and sexual abuse; Z88.0 Allergy status to penicillin; Z88.8 Allergy status to other drugs, medicaments and biological substances
CPT/HCPCS: 36415; 80053; 81003; 81025; 85027; 86780; 93005; 93010; C9803; U0003; U0005

== ENCOUNTER 2021-06-23 19:05 | Inpatient (IN) | payer OTHER ==
[2021-06-23 20:36] VITALS: BMI 30.2
[2021-06-23] MEDS ORDERED: NICOTINE POLACRILEX 2 MG GUM BC PRN (21:32)
[2021-06-23] MEDS ORDERED: MAG HYDROX/AL HYDROX/SIMETH 30 ML UNIT-DOSE CUP PO PRN (21:32)
[2021-06-23] MEDS ORDERED: MAGNESIUM HYDROX 2400MG/30ML ORAL SUSPENSION 30 ML CUP PO PRN (21:32)
[2021-06-23] MEDS ORDERED: LOPERAMIDE HCL 2 MG CAPSULE PO PRN (21:32)
[2021-06-23] MEDS ORDERED: ACETAMINOPHEN 325 MG TABLET (FP) PO PRN (21:32)
[2021-06-23] MEDS ORDERED: P-EPHED 60MG/TRIPROLIDI 2.5MG TABLET PO PRN (21:32)
[2021-06-23] MEDS ORDERED: MAGNESIUM CITRATE 300 ML BOTTLE PO PRN (21:32)
[2021-06-24] MEDS: THIAMINE HCL 100 MG TABLET (FP) PO SCH ×3 (09:53→22:12)
[2021-06-24] MEDS: MELATONIN 5 MG TABLETS PO SCH ×3 (09:53→22:12)
[2021-06-24] MEDS: hydrOXYzine PAMOATE 25 MG CAPSULE (FP) PO PRN (09:53)
[2021-06-24] MEDS: PRENATAL VITAMINS W/ FOLIC ACID TABLET (FP) PO SCH (09:53)
[2021-06-24] MEDS: NICOTINE 10 MG CARTRIDGE (INHALER) IH PRN (09:54)
[2021-06-24] MEDS: ALBUTEROL SO4 HFA INHALER IH PRN (11:07)
[2021-06-24] MEDS: IBUPROFEN 400 MG TABLET (FP) PO PRN ×2 (11:10→20:47)
[2021-06-24] MEDS: guaiFENesin 200 MG/10 ML 10 ML UNIT-DOSE CUPS PO PRN (11:10)
[2021-06-24 14:20] LABS: HCG,QUALITATIVE URINE Negative
[2021-06-24 14:25] LABS: URINE APPEARANCE CLEAR; URINE BILIRUBIN NEGATIVE (NEGATIVE); URINE COLOR YELLOW; URINE GLUCOSE (UA) NEGATIVE (NEGATIVE); URINE KETONE NEGATIVE (NEGATIVE); URINE LEUK ESTERASE NEGATIVE (NEGATIVE); URINE NITRITE NEGATIVE (NEGATIVE); URINE PROTEIN NEGATIVE (NEGATIVE)
[2021-06-24 15:30] LABS: BLOOD UREA NITROGEN 21.5 mg/dL (7-18); CALCIUM 9.6 mg/dL (8.5-10.1)
[2021-06-24 15:31] LABS: ALBUMIN 3.6 g/dl (3.4-5.0); HEMATOCRIT 34.6 % (32.4-45.2); HEMOGLOBIN 11.9 GM/dL (10.7-15.3); MCH 31.7 pg (25.7-33.7); MCHC 34.5 g/dl (32.0-36.0); MEAN CELL VOLUME 91.8 fl (80-96); MEAN PLT VOLUME 7.4 fl (7.5-11.1); PLATELET COUNT 498 10^3/uL (134-434); RBC 3.77 M/mm3 (3.60-5.2); RDW 14.1 % (11.6-15.6); WHITE BLOOD COUNT 10.5 K/mm3 (4.0-10.0)
[2021-06-24 15:35] LABS: TOT PROT 7.8 g/dl (6.4-8.2)
[2021-06-24 15:37] LABS: CREATININE 0.7 mg/dL (0.55-1.3)
[2021-06-24 15:38] LABS: BILIRUBIN,TOTAL 0.3 mg/dL (0.2-1)
[2021-06-24] MEDS: QUEtiapine FUMARATE 100 MG TABLET (FP) PO SCH (17:17)
[2021-06-24] MEDS: DIVALPROEX SODIUM 500 MG TABLET E.C. PO SCH ×2 (20:44→22:12)
[2021-06-24] MEDS: QUEtiapine FUMARATE 200 MG TABLET PO SCH ×2 (20:44→22:12)
[2021-06-24] MEDS: PRAZOSIN HCL 1 MG CAPSULE PO SCH ×2 (20:46→22:12)
[2021-06-25] MEDS ORDERED: PT OWN MED DRAWER 7, Y5N ONE ×2 (04:10→04:20)
[2021-06-25] MEDS: PRENATAL VITAMINS W/ FOLIC ACID TABLET (FP) PO SCH (10:19)
[2021-06-25] MEDS: DIVALPROEX SODIUM 500 MG TABLET E.C. PO SCH ×2 (10:19→21:14)
[2021-06-25] MEDS: QUEtiapine FUMARATE 100 MG TABLET (FP) PO SCH (10:19)
[2021-06-25] MEDS: hydrOXYzine PAMOATE 25 MG CAPSULE (FP) PO PRN ×2 (10:20→21:16)
[2021-06-25] MEDS: guaiFENesin 200 MG/10 ML 10 ML UNIT-DOSE CUPS PO PRN ×2 (10:21→22:02)
[2021-06-25] MEDS: ALBUTEROL SO4 HFA INHALER IH PRN ×2 (10:23→21:16)
[2021-06-25] MEDS: NICOTINE 10 MG CARTRIDGE (INHALER) IH PRN (11:20)
[2021-06-25] MEDS: PRAZOSIN HCL 1 MG CAPSULE PO SCH (21:14)
[2021-06-25] MEDS: THIAMINE HCL 100 MG TABLET (FP) PO SCH (21:14)
[2021-06-25] MEDS: MELATONIN 5 MG TABLETS PO SCH (21:15)
[2021-06-25] MEDS ORDERED: QUEtiapine FUMARATE 100 MG TABLET (FP) PO SCH (21:35)
[2021-06-26] MEDS: ALBUTEROL SO4 HFA INHALER IH PRN ×2 (03:27→09:23)
[2021-06-26] MEDS: hydrOXYzine PAMOATE 25 MG CAPSULE (FP) PO PRN ×2 (06:21→22:05)
[2021-06-26 07:33] VITALS: TEMP 97.4
[2021-06-26] MEDS: NICOTINE 10 MG CARTRIDGE (INHALER) IH PRN (09:12)
[2021-06-26] MEDS: QUEtiapine FUMARATE 100 MG TABLET (FP) PO SCH (09:22)
[2021-06-26] MEDS: DIVALPROEX SODIUM 500 MG TABLET E.C. PO SCH ×2 (09:22→22:03)
[2021-06-26] MEDS: PRENATAL VITAMINS W/ FOLIC ACID TABLET (FP) PO SCH (09:22)
[2021-06-26] MEDS ORDERED: QUEtiapine FUMARATE 300 MG TABLET PO SCH (22:00)
[2021-06-26] MEDS: THIAMINE HCL 100 MG TABLET (FP) PO SCH (22:02)
[2021-06-26] MEDS: MELATONIN 5 MG TABLETS PO SCH (22:02)
[2021-06-26] MEDS: guaiFENesin 200 MG/10 ML 10 ML UNIT-DOSE CUPS PO PRN (22:03)
[2021-06-26] MEDS: IBUPROFEN 400 MG TABLET (FP) PO PRN (22:05)
[2021-06-27] MEDS ORDERED: PT OWN MED DRAWER 7, Y5N ONE (04:43)
[2021-06-27] MEDS: hydrOXYzine PAMOATE 25 MG CAPSULE (FP) PO PRN ×2 (04:47→09:19)
[2021-06-27] MEDS: ALBUTEROL SO4 HFA INHALER IH PRN (04:47)
[2021-06-27] MEDS: DIVALPROEX SODIUM 500 MG TABLET E.C. PO SCH (09:19)
[2021-06-27] MEDS: QUEtiapine FUMARATE 100 MG TABLET (FP) PO SCH (09:19)
[2021-06-27] MEDS: PRENATAL VITAMINS W/ FOLIC ACID TABLET (FP) PO SCH (09:19)
[2021-06-27] MEDS: NICOTINE 10 MG CARTRIDGE (INHALER) IH PRN ×2 (09:19→17:51)
[2021-06-27] MEDS: IBUPROFEN 400 MG TABLET (FP) PO PRN (10:33)
[2021-06-27 10:41] LABS: BASO % 0.3 % (0-2.0); EOS % 8.6 % (0-4.5); HEMATOCRIT 31.7 % (32.4-45.2); HEMOGLOBIN 10.8 GM/dL (10.7-15.3); LYMPH % 46.7 % (8-40); MEAN CELL VOLUME 91.2 fl (80-96); MEAN PLT VOLUME 6.8 fl (7.5-11.1); MONO % 10.1 % (3.8-10.2); NEUT % 34.3 % (42.8-82.8); PLATELET COUNT 487 10^3/uL (134-434); RBC 3.48 M/mm3 (3.60-5.2); RDW 13.7 % (11.6-15.6)
[2021-06-27] MEDS ORDERED: COLLOIDAL OATMEAL 1 BAR EACH TP PRN (12:06)
[2021-06-27] MEDS ORDERED: MASKS NR ONE (14:40)
[2021-06-27 18:41] VITALS: BP 129/72; PULSE 104
[2021-06-27] MEDS ORDERED: chlorproMAZINE HCL 25 MG TABLET PO SCH (22:00)
[2021-06-27] MEDS ORDERED: TRIAMCINOLONE ACET 0.1% CREAM 15 GM TUBE TP SCH (22:00)
[2021-06-28] MEDS ORDERED: QUEtiapine FUMARATE 300 MG TABLET PO SCH (10:00)
== END 2021-06-27 17:55 | disposition short-term general hospital (02) | DRG 772 ==
LOC: YASAS 19:05 → Y5N 06-24 04:05
PROVIDERS: ADMIT Allergy & Immunology; ATTEND Allergy & Immunology
PROC: HZ42ZZZ Group Counseling for Substance Abuse Treatment, Cognitive-Behavioral (ICD-10-PCS; principal; 2021-06-24)
DX: F10.20 Alcohol dependence, uncomplicated (principal); F14.20 Cocaine dependence, uncomplicated; F12.20 Cannabis dependence, uncomplicated; F17.210 Nicotine dependence, cigarettes, uncomplicated; F25.9 Schizoaffective disorder, unspecified; F19.24 Other psychoactive substance dependence with psychoactive substance-induced mood disorder; Z91.14 Patient's other noncompliance with medication regimen; Z88.0 Allergy status to penicillin; Z88.8 Allergy status to other drugs, medicaments and biological substances; Z56.0 Unemployment, unspecified; Z59.0 Homelessness
CPT/HCPCS: 36415; 80053; 80164; 81003; 81025; 82962; 84703; 85025; 85027; 86780; C9803; U0003; U0005

== ENCOUNTER 2024-02-04 15:05 | Inpatient (IN) | payer OTHER ==
[2024-02-04 18:32] VITALS: BMI 27.4
[2024-02-04] MEDS ORDERED: ACETAMINOPHEN 325 MG TABLET (FP) PO PRN (19:51)
[2024-02-04] MEDS ORDERED: guaiFENesin 600 MG TABLET.ER (FP) PO PRN (19:51)
[2024-02-04] MEDS ORDERED: LOPERAMIDE HCL 2 MG CAPSULE PO PRN (19:51)
[2024-02-04] MEDS ORDERED: BENZOCAINE/MENTHOL (CHLORASEPTIC ) LOZENGE MM PRN (19:51)
[2024-02-04] MEDS ORDERED: IBUPROFEN 400 MG TABLET (FP) PO PRN (19:51)
[2024-02-04] MEDS ORDERED: NALOXONE HCL 0.4 MG/ML VIAL IM PRN (19:51)
[2024-02-04] MEDS ORDERED: NALOXONE HCL (KLOXXADO) 8 MG SPRAY NS PRN (19:51)
[2024-02-04] MEDS ORDERED: BENZONATATE 200 MG CAPSULE PO PRN (19:51)
[2024-02-04] MEDS: MELATONIN 5 MG TABLETS PO SCH (21:10)
[2024-02-04] MEDS: THIAMINE 100 MG TABLET PO SCH (21:10)
[2024-02-04] MEDS: IBUPROFEN 600 MG TABLET (FP) PO PRN (21:10)
[2024-02-05] MEDS: PRENATAL VITAMINS W/ FOLIC ACID TABLET (FP) PO SCH (09:14)
[2024-02-05 11:37] LABS: HEMATOCRIT 35.9 % (32.4-45.2); HEMOGLOBIN 11.9 GM/dL (10.7-15.3); MCH 30.8 pg (25.7-33.7); MCHC 33.2 g/dl (32.0-36.0); MEAN CELL VOLUME 92.6 fl (80-96); PLATELET COUNT 479 10^3/uL (134-434); RBC 3.87 M/mm3 (3.60-5.2); RDW 13.8 % (11.6-15.6); WHITE BLOOD COUNT 6.2 K/mm3 (4.0-10.0)
[2024-02-05 12:50] LABS: CHLORIDE 108 mmol/L (98-107); POTASSIUM 4.5 mmol/L (3.5-5.1); SODIUM 139 mmol/L (136-145)
[2024-02-05 12:54] LABS: GLUCOSE,RANDOM 103 mg/dL (74-106)
[2024-02-05 12:55] LABS: ALBUMIN 2.9 g/dl (3.4-5.0); ANION GAP 2 mmol/L (4-13); BLOOD UREA NITROGEN 19.2 mg/dL (7-18); CALCIUM 8.9 mg/dL (8.5-10.1); CO2 30 mmol/L (21-32)
[2024-02-05 12:58] LABS: CREATININE 0.6 mg/dL (0.55-1.3); SGPT/ALT 13 U/L (13-61)
[2024-02-05 12:59] LABS: SGOT/AST 6 U/L (15-37)
[2024-02-05 13:00] LABS: BILIRUBIN,TOTAL 0.2 mg/dL (0.2-1); TOT PROT 5.8 g/dl (6.4-8.2)
[2024-02-05 13:01] LABS: ALK PHOS 70 U/L (45-117)
[2024-02-05 14:15] LABS: SYPHILIS W/ RPR CONF NON-REACTIVE (NONREACTIVE)
[2024-02-05 17:25] LABS: EPI CELLS >36 /uL (0-25.1); HYALINE CASTS 7 /uL (0-3.1); PH,URINE 8.5 (5.0-8.0); URINE APPEARANCE TURBID; URINE BACTERIA 552 /uL (0-1359); URINE BILIRUBIN NEGATIVE (NEGATIVE); URINE COLOR YELLOW; URINE GLUCOSE (UA) NEGATIVE (NEGATIVE); URINE KETONE NEGATIVE (NEGATIVE); URINE LEUK ESTERASE 2+ (NEGATIVE); URINE NITRITE NEGATIVE (NEGATIVE); URINE PROTEIN NEGATIVE (NEGATIVE); URINE RBC 10 /uL (0-23.9); URINE UROBILINOGEN 0.2 mg/dL (0.2-1.0); URINE WBC 202 /uL (0-25.8)
[2024-02-05] MEDS: NICOTINE 21 MG/24 HOURS TOPICAL PATCH TD SCH (17:59)
[2024-02-06] MEDS: QUEtiapine FUMARATE 100 MG TABLET (FP) PO SCH (21:21)
[2024-02-06] MEDS: DIVALPROEX SODIUM 500 MG TABLET E.C. PO SCH (21:23)
[2024-02-06] MEDS: ALBUTEROL SO4 HFA INHALER IH PRN (21:49)
[2024-02-08] MEDS: NICOTINE POLACRILEX 2 MG GUM BUC PRN (10:17)
[2024-02-10] MEDS: METHYL SALICYLATE/MENTHOL OINT 30 GM TUBE TP SCH (21:27)
[2024-02-10] MEDS: hydrOXYzine PAMOATE 25 MG CAPSULE (FP) PO PRN (21:29)
[2024-02-11] MEDS: DOCUSATE SODIUM 100 MG CAPSULE (FP) PO SCH (10:26)
[2024-02-11] MEDS: ALBUTEROL SO4 0.083% IH SOL 2.5 MG/3 ML VIAL.NEB. NEB PRN (22:03)
[2024-02-13] MEDS: POLYETHYLENE GLYCOL (HEALTHYLAX) 3350 17 GM PACKET PO PRN (13:58)
[2024-02-13] MEDS: MAG HYDROX/AL HYDROX/SIMETH 30 ML UNIT-DOSE CUP PO PRN (18:35)
[2024-02-14] MEDS ORDERED: BACITRACIN 0.9 GM PACKET TP PRN (13:03)
[2024-02-14] MEDS: CLOTRIMAZOLE/BETAMET DIPROP TOPICAL CREAM 45 GM TUBE TP SCH (21:27)
[2024-02-15] MEDS: MAGNESIUM HYDROX 2400MG/30ML ORAL SUSPENSION 30 ML CUP PO PRN (14:08)
[2024-02-17] MEDS ORDERED: QUEtiapine FUMARATE 200 MG TABLET PO SCH (10:00)
[2024-02-17] MEDS: QUEtiapine FUMARATE 200 MG TABLET PO SCH (12:19)
[2024-02-18 12:48] LABS: HIV INTERPRETATION NEGATIVE (NEGATIVE)
[2024-02-18] MEDS: NICOTINE POLACRILEX 4 MG GUM BUC PRN (16:51)
[2024-02-19 07:06] VITALS: RESP 18
[2024-02-20 06:58] VITALS: BP 102/63; PULSE 95; TEMP 96.3
[2024-02-20] MEDS: metroNIDAZOLE 250 MG TABLET PO ONE (09:32)
== END 2024-02-20 10:18 | disposition home or self-care (01) | DRG 772 ==
LOC: YASAS 15:05 → Y3NR 20:13 → Y5N 02-05 10:31
PROVIDERS: ADMIT Allergy & Immunology; ATTEND Psychiatry & Neurology Pain Medicine
PROC: HZ42ZZZ Group Counseling for Substance Abuse Treatment, Cognitive-Behavioral (ICD-10-PCS; principal; 2024-02-04)
DX: F11.20 Opioid dependence, uncomplicated (principal); F10.20 Alcohol dependence, uncomplicated; F12.20 Cannabis dependence, uncomplicated; F17.210 Nicotine dependence, cigarettes, uncomplicated; F25.0 Schizoaffective disorder, bipolar type; I10 Essential (primary) hypertension; J45.20 Mild intermittent asthma, uncomplicated; Z91.410 Personal history of adult physical and sexual abuse; Z63.0 Problems in relationship with spouse or partner; Z86.39 Personal history of other endocrine, nutritional and metabolic disease; Z91.148 Patient's other noncompliance with medication regimen for other reason; Z59.00 Homelessness unspecified; Z56.0 Unemployment, unspecified
CPT/HCPCS: 36415; 80053; 80164; 80305; 80307; 81003; 81025; 83036; 85027; 86780; 86803; 87389; 87491; 87591; 87661; 93005; 93010; 94640

== ENCOUNTER 2024-05-14 09:14 | Emergency (ER) | payer OTHER ==
[2024-05-14 09:21] VITALS: BP 116/64; PULSE 106; RESP 18; TEMP 100.2; BMI 24.6
[2024-05-14] MEDS ORDERED: ACETAMINOPHEN INJECTION 100 ML IVPB ONE (11:39)
[2024-05-14] MEDS: ACETAMINOPHEN 1000 MG/100 ML BAG IVPB ONE (11:39)
[2024-05-14] MEDS ORDERED: ONDANSETRON 4 MG/2 ML VIAL ONE (11:39)
[2024-05-14] MEDS: SODIUM CHLORIDE 0.9% 500 ML INFUS.BAG IV ONE (11:39)
[2024-05-14] MEDS: ONDANSETRON *ODT* 4 MG TABLET SL ONE (11:40)
[2024-05-14 12:08] LABS: BASO % 0.5 % (0-2.0); EOS % 0.2 % (0-4.5); HEMOGLOBIN 11.9 GM/dL (10.7-15.3); LYMPH % 15.6 % (8-40); MCH 30.7 pg (25.7-33.7); MCHC 33.8 g/dl (32.0-36.0); MEAN CELL VOLUME 90.7 fl (80-96); MONO % 9.4 % (3.8-10.2); NEUT % 74.3 % (42.8-82.8); PLATELET COUNT 310 10^3/uL (134-434); RBC 3.86 M/mm3 (3.60-5.2); RDW 13.6 % (11.6-15.6); WHITE BLOOD COUNT 11.5 K/mm3 (4.0-10.0)
[2024-05-14 12:26] LABS: CHLORIDE 103 mmol/L (98-107); SODIUM 138 mmol/L (136-145)
[2024-05-14 12:30] LABS: CALCIUM 8.4 mg/dL (8.5-10.1)
[2024-05-14 12:31] LABS: ALBUMIN 3.1 g/dl (3.4-5.0); ANION GAP 7 mmol/L (4-13); BLOOD UREA NITROGEN 10.1 mg/dL (7-18); CO2 28 mmol/L (21-32); GLUCOSE,RANDOM 91 mg/dL (74-106)
[2024-05-14 12:33] LABS: CREATININE 0.7 mg/dL (0.55-1.3); SGPT/ALT 14 U/L (13-61)
[2024-05-14 12:34] LABS: SGOT/AST 11 U/L (15-37); TOT PROT 6.5 g/dl (6.4-8.2)
[2024-05-14 12:35] LABS: BILIRUBIN,TOTAL 0.4 mg/dL (0.2-1)
[2024-05-14 12:36] LABS: ALK PHOS 67 U/L (45-117)
[2024-05-14 13:45] LABS: HCG,QUALITATIVE URINE Negative
[2024-05-14 13:47] LABS: EPI CELLS 9 /uL (0-25.1); HYALINE CASTS 0 /uL (0-3.1); PH,URINE 6.5 (5.0-8.0); URINE APPEARANCE TURBID; URINE BACTERIA >9,000 /uL (0-1359); URINE BILIRUBIN NEGATIVE (NEGATIVE); URINE COLOR YELLOW; URINE GLUCOSE (UA) NEGATIVE (NEGATIVE); URINE KETONE NEGATIVE (NEGATIVE); URINE LEUK ESTERASE 3+ (NEGATIVE); URINE NITRITE POSITIVE (NEGATIVE); URINE PROTEIN 1+ (NEGATIVE); URINE RBC 77 /uL (0-23.9); URINE WBC 5870 /uL (0-25.8)
[2024-05-14 13:56] LABS: PHENCYCLIDINE,URINE NEGATIVE (NEGATIVE)
[2024-05-14 13:57] LABS: METHADONE, UR NEGATIVE (NEGATIVE); URINE AMPHETAMINES NEGATIVE (NEGATIVE); URINE BARBITURATES NEGATIVE (NEGATIVE); URINE BENZODIAZEPINES NEGATIVE (NEGATIVE)
[2024-05-14 14:06] LABS: COCAINE, UR POSITIVE (NEGATIVE); OPIATES, URI NEGATIVE (NEGATIVE)
[2024-05-14 14:38] LABS: YEAST NONE SEEN (NEGATIVE)
[2024-05-14] MEDS ORDERED: CEFTRIAXONE 1 GM/50 ML BAG ONE (14:44)
[2024-05-14] MEDS: CEFTRIAXONE 1 GM in DEXTROSE 5%-WATER - 100 ML IVPB ONE (14:55)
== END 2024-05-14 14:45 | disposition short-term general hospital (02) ==
LOC: JER 09:14
PROC: 3E03329 Introduction of Other Anti-infective into Peripheral Vein, Percutaneous Approach (ICD-10-PCS; principal; 2024-05-14)
PROC: 3E033NZ Introduction of Analgesics, Hypnotics, Sedatives into Peripheral Vein, Percutaneous Approach (ICD-10-PCS; 2024-05-14)
DX: F10.129 Alcohol abuse with intoxication, unspecified (principal); R50.9 Fever, unspecified; R10.33 Periumbilical pain; R11.2 Nausea with vomiting, unspecified; R06.02 Shortness of breath; R30.0 Dysuria; R00.2 Palpitations; Y90.0 Blood alcohol level of less than 20 mg/100 ml; Z20.822 Contact with and (suspected) exposure to COVID-19
CPT/HCPCS: 0241U-QW; 36415; 71045-TC-FY; 80053; 80307; 81003; 82962; 84703; 85025; 93005; 93010; 99285-25; J0131; Q0162